=== PATIENT | male | born 1995 | race African-American/Black ===

== ENCOUNTER 2023-06-23 22:39 | Emergency (ER) | payer SELFPAY ==
[~2023-06-23] VITALS: Ht 185.4 cm; Wt 65.0 kg
[2023-06-23 22:57] VITALS: O2SAT 99
[2023-06-23] MEDS ORDERED: IBUPROFEN 800MG TABLET PO ONE (23:45)
[2023-06-23] MEDS ORDERED: ACETAMINOPHEN 325MG TABLET PO ONE (23:45)
[2023-06-24 00:08] VITALS: TEMP 98
[2023-06-24] MEDS: IBUPROFEN 400MG TABLET PO NR ×2 (00:09→01:25)
[2023-06-24 01:25] VITALS: BP 120/82; PULSE 75; RESP 14
[2023-06-24] MEDS ORDERED: IBUP-2030 MT (02:26)
[2023-06-24] MEDS ORDERED: ACET-2708 MT (02:26)
[2023-06-24] MEDS ORDERED: HYDROCODONE/ACETAMINOPHEN 5/325MG TABLET PO ONE (02:30)
== END 2023-06-24 02:57 | disposition home or self-care (01) ==
LOC: ER 22:45
DX: M25.571 Pain in right ankle and joints of right foot (principal)
CPT/HCPCS: 73501; 73551; 73562; 99284